=== PATIENT | female | born 1995 | race Caucasian/White ===

== ENCOUNTER 2017-09-14 18:26 | Emergency (ER) | payer BC ==
[2017-09-14 18:32] VITALS: TEMP 98.2
[2017-09-14 19:40] LABS: PLATELET COUNT 268 10^3/uL (150-400)
--- NOTE | 2017-09-14 19:45 | EDPHY ---
H & P Smoking Status: Never smoked Time Seen by Provider: 09/14/17 19:31 HPI/ROS: CHIEF COMPLAINT: Abdominal pain HISTORY OF PRESENT ILLNESS: 21-year-old female presents to the emergency department complaining of severe lower abdominal pain. The pain began abruptly just prior to arrival after she was running on the treadmill. She felt like her whole lower abdomen was cramping. She was lying on the floor and the pain did not resolve. She had a bowel movement prior to arrival without any relief of pain. She states that the pain was severe when she initially came to the emergency department, "8 or 9 and "and now since being in the emergency department the pain has improved. She still feels slight pain in the right lower abdomen. No back pain. No vomiting or diarrhea. She does have a history of asthma and was complaining of feeling short of breath. She also thought that she was feeling a little "panicky". She did use her albuterol inhaler and the symptoms have since resolved. She has never had pain like this in the past. She is currently on her menstrual cycle she believes day 3. Denies . REVIEW OF SYSTEMS: Constitutional: No fever, no chills. Eyes: No double or blurry vision. ENT: No sore throat. Respiratory: No cough, no shortness of breath. Cardiac: No chest pain. Gastrointestinal: As above. No vomiting or diarrhea Genitourinary: No dysuria. Musculoskeletal: No neck or back pain. Skin: No rashes. Neurological: No headache. 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 Eyes: Pupils equal and round. Extraocular motions are all intact. ENT: Mouth: Mucous membranes moist. Respiratory: No wheezing, rhonchi, or rales, lungs are clear to auscultation. Cardiovascular: Regular rate and rhythm. Gastrointestinal: Abdomen is soft. Tenderness with palpation in her right lower quadrant. No rebound, guarding or masses noted. No CVA tenderness bilaterally. Neurological: Alert and oriented x 3, cranial nerves II through XII grossly intact Skin: Warm and dry, no rashes. Musculoskeletal: Nontender to palpate along the cervical, thoracic or lumbar spine. Neck is supple. Extremities: Full range of motion and no peripheral edema. Psychiatric: Patient is oriented X 3, there is no agitation. (Vinay Marquez) Constitutional: Initial Vital Signs Temperature (C) 36.8 C 09/14/17 18:29 Heart Rate 102 H 09/14/17 18:29 Respiratory Rate 20 09/14/17 18:29 Blood Pressure 143/97 H 09/14/17 18:29 O2 Sat (%) 99 09/14/17 18:29 O2 Delivery Mode Room Air Allergies/Adverse Reactions: No Known Allergies Allergy (Unverified 09/14/17 18:28) Home Medications: Medication Instructions Recorded Blisovi Fe 1-20 Tablet 09/14/17 Nasocort 09/14/17 Pro Air 09/14/17 Medical Decision Making - Diagnostics Imaging: Discussed imaging studies w/ at home independent call center agent Radiologist - Diagnostics Imaging Results: Imaging Impressions Pelvic/Renal Ultrasound 09/14/17 19:43 Impression: Normal exam. Findings were discussed with VINAY MARQUEZ PA-C at 21:39, on 09/14/2017. Abdomen Ultrasound 09/14/17 19:46 Impression: Nondiagnostic assessment of the appendix. If there is further clinical concern regarding the patient's right lower quadrant pain, contrast-enhanced CT imaging could be considered. Findings were discussed with VINAY MARQUEZ PA-C at 21:35, on 09/14/2017. ED Course/Re-evaluation: 21-year-old female presents to the emergency department with abdominal pain. Pelvic ultrasound was unremarkable. She was able to provide urine which had calcium oxalate crystals present. She also at 1+ bacteria, large amount of red blood cells likely associated also with her current menstruation. Case was discussed with Dr. Luz Clark, secondary supervising physician, who did not directly evaluate the patient but agrees with treatment and plan. I did discuss with the patient about the possibility of kidney stone. Patient however was feeling much better. I did discuss the pros and cons of CT imaging of her abdomen and pelvis including radiation exposure the patient declined. Feel that this is reasonable. The patient was given IV Toradol and IV normal saline and feeling much better. She was given urology referral. She understands that she could possibly have a kidney stone. She was instructed to return to the emergency department she developed recurring abdominal pain, vomiting, fever, difficulty with urination, or if she felt worse. She will call for the results of her urine culture in 48 hr. The patient's appendix was not visualized on examination, however the patient has no pain over McBurney's point. There is no radiographic evidence to suggest acute appendicitis. I again offered CT imaging to further evaluate this the patient declined. The patient does not feel that this is related to her appendix. (Vinay Marquez) The patient was evaluated and managed by the physician catering assistant. I have reviewed this chart and I agree with the findings and plan of care as documented , as indicated by my signature. I am the secondary supervising physician. ( Luz Clark) Differential Diagnosis: Including but not limited to ovarian cyst, ovarian torsion, urinary tract infection, pyelonephritis, kidney stone, acute appendicitis (Vinay Marquez) - Data Points Laboratory Results: Laboratory Results 09/14/17 19:20 09/14/17 19:20 Medications Given: Discontinued Medications Sodium Chloride (Ns) 1,000 mls @ 0 mls/hr IV ONCE ONE PRN Reason: Wide Open Stop: 09/14/17 22:03 Last Admin: 09/14/17 22:09 Dose: 1,000 mls Ketorolac Tromethamine (Toradol) 15 mg IVP EDNOW ONE Stop: 09/14/17 22:03 Last Admin: 09/14/17 22:09 Dose: 15 mg Departure - Departure Disposition: Home, Routine, Self-Care Clinical Impression: Abdominal pain Qualifiers: Abdominal location: lower abdomen, unspecified Qualified Code(s): R10.30 - Lower abdominal pain, unspecified Condition: Good Instructions: Kidney Stones (ED), Acute Abdominal Pain (ED) Additional Instructions: Abdominal Pain: Return to the Emergency Department immediately for increasing pain, fever, vomiting, or if not completely better in 8-12 hours. Call [phone] for the results of your urine culture in 48 hr. You may continue ibuprofen 600 mg every 8 hr as needed for pain. Drink plenty of fluids. Strain your urine. Referrals: Ezequiel Gonzalez MD [Medical Doctor] - 2-3 days without fail (Urologist on-call)
[2017-09-14 21:27] VITALS: RESP 16
[2017-09-14] MEDS ORDERED: NS 1,000 ML IV ONE (22:02)
[2017-09-14] MEDS ORDERED: KETOROLAC 30 MG/1 ML SDV IVP ONE (22:02)
[2017-09-14 22:57] VITALS: BP 119/76; PULSE 94; O2SAT 97
== END 2017-09-14 22:57 | disposition home or self-care (01) ==
DX: R10.30 Lower abdominal pain, unspecified (principal); J45.909 Unspecified asthma, uncomplicated
CPT/HCPCS: 96374; J1885

== ENCOUNTER 2017-09-15 17:28 | Emergency (ER) | payer BC ==
--- NOTE | 2017-09-15 18:17 | EDPHY ---
General - History Smoking Status: Never smoked Narrative: CHIEF COMPLAINT: Abdominal pain, here for recheck HISTORY OF PRESENT ILLNESS: Patient presents with complains of abdominal pain. Pain originally started yesterday after running. It is located in the suprapubic region. It was worse yesterday when she was evaluated in this emergency department. She was discharged home with instructions to return if no improvement. She says that it had not improved so she returned. Better at time of my examination, the pain has improved significantly. It has improved since arriving to the emergency department and waiting. She has had no fever vomiting at home. No vaginal bleeding or discharge. No dysuria, but she has been urinating more frequently. She reports that she is feeling much better and is hesitant to have a CT scan. She has no other associated complaints or modifying factors. REVIEW OF SYSTEMS: Ten systems reviewed and are negative unless otherwise noted in the HPI PCP: In [place] SPECIALISTS: None locally PAST MEDICAL HISTORY: Asthma PAST SURGICAL HISTORY: No recent surgeries SOCIAL HISTORY: Nonsmoker. Occasional alcohol use. [employer] sophomore. Originally from [place] FAMILY HISTORY: Noncontributory EXAMINATION General Appearance: Alert, no distress, well-appearing Head: normocephalic, atraumatic Eyes: Pupils equal and round, no conjunctival pallor or injection ENT, Mouth: Mucous membranes moist Neck: Normal inspection, supple, non-tender Respiratory: Lungs are clear to auscultation Cardiovascular: Regular rate and rhythm Gastrointestinal: Abdomen is soft and nontender. No distention. No tympany. No CVA tenderness. No guarding. Benign abdominal examination. Back: non-tender, no bony abnormalities Neurological: A&O, nonfocal, normal gait Skin: Warm and dry, no rash no petechiae purpura Extremities: Nontender, no pedal edema Psychiatric: Mood and affect normal DIFFERENTIAL DIAGNOSES: Including but not limited to renal colic, bladder calculus, appendicitis, colitis, ovarian torsion, menstrual pain, interstitial cystitis MDM: 6:15 p.m. Ongoing suprapubic abdominal pain with history this suggest renal colic. Her pain improved this morning but then worsened this afternoon. It is now improving again after waiting in the emergency department waiting room. She is afebrile. No vomiting. No flank pain. Abdominal exam is completely benign. I will order laboratory studies urinalysis to compare to yesterday. She is resting comfortably in no acute distress. I do not feel she warrants an emergent CT scan at this time. 7:10 p.m. Laboratory studies are well within normal limits. Leukocytosis of resolved. Creatinine remains normal. Urinalysis has cleared to mild microscopic hematuria only. Abdominal exam remains benign on repeat evaluation at this time. I do not feel she warrants CT scan. I do not feel she warrants repeat ultrasound. I do not feel she has ovarian torsion, and had a normal pelvic ultrasound last night. Differential diagnoses are likely interstitial cystitis versus bladder calculus. I did offer CT scan but she has declined. I do not feel she needs an emergent CT scan at this time. Feel that she is stable for discharge home with follow up with primary care physician and repeat evaluation in the next 24 hr if no improvement. We discussed naproxen, rest and increase fluid intake. She is comfortable with this plan and discharged in stable condition. SUPERVISION: Patient was independently examined, but I discussed the case with my secondary supervising physician Dr. Khan ([facility]) Medical Decision Making: I did not see this patient while she was in the emergency department. However her care was discussed with the PA while the patient was in the department. I agree with treatment plan and management. IM the secondary supervising physician (Toby Khan) - Objective Vital Signs: Initial Vital Signs Temperature (C) 36.8 C 09/15/17 17:40 Heart Rate 105 H 09/15/17 17:40 Respiratory Rate 17 09/15/17 17:40 Blood Pressure 134/78 H 09/15/17 17:40 O2 Sat (%) 96 09/15/17 17:40 O2 Delivery Mode Room Air Allergies/Adverse Reactions: No Known Allergies Allergy (Verified 09/15/17 17:40) Home Medications: Medication Instructions Recorded Blisovi Fe 1-20 Tablet 09/14/17 Nasocort 09/14/17 Pro Air 09/14/17 Laboratory Results: Laboratory Results 09/15/17 18:24 09/15/17 18:24 Departure - Departure Disposition: Home, Routine, Self-Care Clinical Impression: Abdominal pain Qualifiers: Abdominal location: lower abdomen, unspecified Qualified Code(s): R10.30 - Lower abdominal pain, unspecified Condition: Good Instructions: Dysmenorrhea (ED), Abdominal Pain (ED), Interstitial Cystitis (ED ) Additional Instructions: 1. Keep your appointment with Urology on Tuesday as Scheduled 2. [id number] Aleve, 2 pills twice daily as needed as discussed 3. Return to emergency department in 24 hr if no improvement or any worsening of her symptoms Referrals: CARLOS BARRIENTOS [Other] - As per Instructions
[2017-09-15 18:33] LABS: PLATELET COUNT 225 10^3/uL (150-400)
[2017-09-15 19:23] VITALS: BP 118/64; PULSE 81; RESP 18; TEMP 97.9; O2SAT 97
== END 2017-09-15 19:23 | disposition home or self-care (01) ==
DX: R10.30 Lower abdominal pain, unspecified (principal)

== ENCOUNTER 2017-12-16 10:23 | Emergency (ER) | payer BC ==
[2017-12-16 11:19] LABS: PLATELET COUNT 195 10^3/uL (150-400)
--- NOTE | 2017-12-16 11:43 | EDPHY ---
H & P Time Seen by Provider: 12/16/17 10:55 HPI/ROS: CHIEF COMPLAINT: Abdominal pain HISTORY OF PRESENT ILLNESS: 22-year-old female presents to the emergency department with low back pain and lower abdominal pain. Pain began last evening and then was worse this morning. Patient has a history of a kidney kidney stone which she apparently passed on her own 3 months ago. She was seen by a urologist, Dr. Gonzalez. She was told that she has to kidneys on the right side with a very narrow ureter. She denies nausea or vomiting. She denies chest pain or difficulty breathing. Denies fevers or chills. She feels that this pain is very similar to what she had 3 months ago when she had a kidney stone. REVIEW OF SYSTEMS: Constitutional: No fever, no chills. Eyes: No double or blurry vision. ENT: No sore throat. Respiratory: No cough, no shortness of breath. Cardiac: No chest pain. Gastrointestinal: Abdominal pain as above. No vomiting or diarrhea. Genitourinary: No dysuria, urgency or frequency with urination. Musculoskeletal: No neck or back pain. Skin: No rashes. Neurological: No headache. 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 Temperature 37.6 degrees. Nontoxic appearing. Eyes: Pupils equal and round. Extraocular motions are all intact. ENT: Mouth: Mucous membranes moist. Respiratory: No wheezing, rhonchi, or rales, lungs are clear to auscultation. Cardiovascular: Regular rate and rhythm. Gastrointestinal: Abdomen is soft. Mild tenderness with palpation in the suprapubic area. There is no rebound, guarding or masses noted. No CVA tenderness bilaterally. Neurological: Alert and oriented x 3, cranial nerves II through XII grossly intact Skin: Warm and dry, no rashes. Musculoskeletal: Nontender to palpate along the cervical, thoracic or lumbar spine. Neck is supple. Extremities: Full range of motion and no peripheral edema. Psychiatric: Patient is oriented X 3, there is no agitation. Constitutional: Initial Vital Signs Temperature (C) 37.6 C 12/16/17 10:48 Heart Rate 80 12/16/17 10:48 Respiratory Rate 16 12/16/17 10:48 Blood Pressure 134/98 H 12/16/17 10:48 O2 Sat (%) 96 12/16/17 10:48 O2 Delivery Mode Room Air Allergies/Adverse Reactions: No Known Allergies Allergy (Verified 12/16/17 10:48) Home Medications: Medication Instructions Recorded Blisovi Fe 1-20 Tablet 09/14/17 Nasocort 09/14/17 Pro Air 09/14/17 Medical Decision Making ED Course/Re-evaluation: 22-year-old female presents to the emergency department with abdominal pain. The patient is concerned that she has recurring kidney stone. Laboratory studies were all within normal limits. Patient was reassured that she had no signs of blood in her urine. Case wa discussed with Dr. Stern, secondary supervising physician, who did not directly evaluate the patient but agrees with treatment and plan. Patient was given 15 mg of IV Toradol as well as IV normal saline. She was feeling much better. I encouraged follow up with her urologist. She was encouraged to return to the emergency department she had any change in symptoms are worse. I doubt this patient has ovarian torsion. I offered further imaging the patient declined. Differential Diagnosis: Including but not limited to ovarian cyst, ovarian torsion, kidney stone, urinary tract infection, pyelonephritis - Data Points Laboratory Results: Laboratory Results 12/16/17 11:07 12/16/17 11:07 12/16/17 12/16/17 12/16/17 11:07 11:07 11:07 WBC RBC Hgb Hct MCV MCH MCHC RDW Plt Count MPV Neut % (Auto) Lymph % (Auto) [place] % (Auto) Eos % (Auto) Baso % (Auto) Nucleat RBC Rel Count Absolute Neuts (auto) Absolute Lymphs (auto) Absolute Monos (auto) Absolute Eos (auto) Absolute Basos (auto) Absolute Nucleated RBC Immature Gran % Immature Gran # Sodium 141 mEq/L mEq/L (135-145) Potassium 4.1 mEq/L mEq/L (3.5-5.2) Chloride 106 mEq/L mEq/L (97-110) Carbon Dioxide 24 mEq/l mEq/l (22-31) Anion Gap 11 mEq/L mEq/L (8-16) BUN 10 mg/dL mg/dL (7-23) Creatinine 0.9 mg/dL mg/dL (0.6-1.0) Estimated GFR > 60 Glucose 85 mg/dL mg/dL (70-100) Calcium 9.4 mg/dL mg/dL (8.5-10.4) Beta HCG, Qual NEGATIVE Urine Color PALE YELLOW Urine Appearance CLEAR Urine pH 7.0 (5.0-7.5) Ur Specific [place] 1.004 (1.002-1.030) Urine Protein NEGATIVE (NEGATIVE) Urine Ketones TRACE H (NEGATIVE) Urine Blood NEGATIVE (NEGATIVE) Urine Nitrate NEGATIVE (NEGATIVE) Urine Bilirubin NEGATIVE (NEGATIVE) Urine Urobilinogen NEGATIVE EU EU (0.2-1.0) Ur Leukocyte Esterase NEGATIVE (NEGATIVE) Urine RBC 1-3 /hpf /hpf (0-3) Urine WBC 1-3 /hpf /hpf (0-3) Ur Epithelial Cells TRACE /lpf /lpf (NONE-1+) Urine Bacteria 1+ /hpf H /hpf (NONE SEEN) Urine Glucose NEGATIVE (NEGATIVE) 12/16/17 11:07 WBC 4.71 10^3/uL 10^3/uL (3.80-9.50) RBC 5.21 10^6/uL 10^6/uL (4.18-5.33) Hgb 15.3 g/dL g/dL (12.6-16.3) Hct 44.8 % % (38.0-47.0) MCV 86.0 fL fL (81.5-99.8) MCH 29.4 pg pg (27.9-34.1) MCHC 34.2 g/dL g/dL (32.4-36.7) RDW 12.3 % % (11.5-15.2) Plt Count 195 10^3/uL 10^3/uL (150-400) MPV 10.0 fL fL (8.7-11.7) Neut % (Auto) 43.2 % % (39.3-74.2) Lymph % (Auto) 43.5 % % (15.0-45.0) [place] % (Auto) 9.1 % % (4.5-13.0) Eos % (Auto) 3.6 % % (0.6-7.6) Baso % (Auto) 0.4 % % (0.3-1.7) Nucleat RBC Rel Count 0.0 % % (0.0-0.2) Absolute Neuts (auto) 2.03 10^3/uL 10^3/uL (1.70-6.50) Absolute Lymphs (auto) 2.05 10^3/uL 10^3/uL (1.00-3.00) Absolute Monos (auto) 0.43 10^3/uL 10^3/uL (0.30-0.80) Absolute Eos (auto) 0.17 10^3/uL 10^3/uL (0.03-0.40) Absolute Basos (auto) 0.02 10^3/uL 10^3/uL (0.02-0.10) Absolute Nucleated RBC 0.00 10^3/uL 10^3/uL (0-0.01) Immature Gran % 0.2 % % (0.0-1.1) Immature Gran # 0.01 10^3/uL 10^3/uL (0.00-0.10) Sodium Potassium Chloride Carbon Dioxide Anion Gap BUN Creatinine Estimated GFR Glucose Calcium Beta HCG, Qual Urine Color Urine Appearance Urine pH Ur Specific [place] Urine Protein Urine Ketones Urine Blood Urine Nitrate Urine Bilirubin Urine Urobilinogen Ur Leukocyte Esterase Urine RBC Urine WBC Ur Epithelial Cells Urine Bacteria Urine Glucose Medications Given: Discontinued Medications Ketorolac Tromethamine (Toradol) 15 mg IVP EDNOW ONE Stop: 12/16/17 11:47 Last Admin: 12/16/17 11:59 Dose: 15 mg Departure - Departure Disposition: Home, Routine, Self-Care Clinical Impression: Abdominal pain Qualifiers: Abdominal location: right lower quadrant Qualified Code(s): R10.31 - Right lower quadrant pain Back pain Qualifiers: Back pain location: low back pain Chronicity: acute Back pain laterality: bilateral Sciatica presence: without sciatica Qualified Code(s): M54.5 - Low back pain Condition: Good Instructions: Acute Abdominal Pain (ED), Back Pain (ED) Additional Instructions: Abdominal Pain: Return to the Emergency Department immediately for increasing pain, fever, vomiting, or if not completely better in 8-12 hours. Referrals: Ezequiel Gonzalez MD [Medical Doctor] - As per Instructions Stand Alone Forms: School Excuse
[2017-12-16] MEDS ORDERED: KETOROLAC 30 MG/1 ML SDV IVP ONE (11:46)
[2017-12-16 13:14] VITALS: BP 115/71
== END 2017-12-16 13:14 | disposition home or self-care (01) ==
DX: R10.31 Right lower quadrant pain (principal); M54.5 Low back pain
CPT/HCPCS: 96374; J1885